=== PATIENT | female | born 1985 ===

== ENCOUNTER 2019-11-03 12:21 | Emergency (ER) | payer OTHER ==
[2019-11-03] MEDS ORDERED: Acetaminophen 325 MG TAB ONE (14:21)
--- NOTE | 2019-11-03 14:41 | RAD ---
PA AND LATERAL VIEWS CHEST: HISTORY: Cough and fever. FINDINGS: The cardiomediastinum is normal. The lungs are expanded without focal areas of consolidation, pneumo thoraces, or pleural effusions. No acute osseous abnormalities are seen. IMPRESSION: No radiographic evidence of acute cardiopulmonary process. POS: [facility]
== END 2019-11-03 15:07 | disposition home or self-care (01) ==
LOC: ERS 12:21
DX: J20.9 Acute bronchitis, unspecified (principal)
CPT/HCPCS: 71046